=== PATIENT | female | born 1980 | race Caucasian/White ===

== ENCOUNTER 2020-08-05 13:05 | Emergency (ER) | payer OTHER, MEDICAID, SELFPAY ==
[~2020-08-05] VITALS: Ht 165.1 cm; Wt 78.0 kg
[~2020-08-05 13:05] MED LIST: SYN50 PO
[2020-08-05 13:22] VITALS: BP_SYST 128
[2020-08-05] MEDS ORDERED: BENZ1LOZ58 PO (14:24)
[2020-08-05] MEDS ORDERED: AZIT250T PO (14:24)
[2020-08-05 14:30] VITALS: BP_SYST 128
== END 2020-08-05 14:31 | disposition home or self-care (01) ==
LOC: SED 13:05
DX: B34.9 Viral infection, unspecified (principal); J45.909 Unspecified asthma, uncomplicated; E07.9 Disorder of thyroid, unspecified; Z88.8 Allergy status to other drugs, medicaments and biological substances; Z79.899 Other long term (current) drug therapy
CPT/HCPCS: 99283

== ENCOUNTER 2021-08-31 19:10 | Emergency (ER) | payer OTHER, MEDICAID, SELFPAY ==
[~2021-08-31] VITALS: Ht 165.1 cm; Wt 65.8 kg
[2021-08-31 19:10] VITALS: BP_SYST 126
[~2021-08-31 19:10] MED LIST changes: +BENZ1LOZ58 PO; +ZIT250 PO
[2021-08-31 20:20] LABS: BILIRUBIN,URINE NEGATIVE (NEGATIVE); CLARITY/URINE CLEAR (CLEAR); GLUCOSE,URINE NEGATIVE (NEGATIVE); KETONES,URINE NEGATIVE (NEGATIVE); LEUKOCYTE ESTERASE ,URINE NEGATIVE (NEGATIVE); NITRITE, URINE NEGATIVE (NEGATIVE); PH,URINE 6.5 (5.0-8.0); PROTEIN URINE NEGATIVE (NEGATIVE); UROBILINOGEN,URINE 0.2 (0.2-1.0)
[2021-08-31 20:25] LABS: BLOOD, URINE TRACE (NEGATIVE); COLOR,URINE STRAW (YELLOW)
[2021-08-31 20:31] LABS: BACTERIA,URINE RARE /HPF (None Seen); MUCUS,URINE 1+ /LPF (None Seen); RBC,URINE 0-3 /HPF (0-3); WBC,URINE 0-3 /HPF (0-3)
[2021-08-31] MEDS ORDERED: ACET-2634 PO (21:17)
== END 2021-08-31 21:30 | disposition left against medical advice (07) ==
LOC: SED 19:10
DX: R30.0 Dysuria (principal); Z53.21 Procedure and treatment not carried out due to patient leaving prior to being seen by health care provider
CPT/HCPCS: 81000; 81025; 87086